=== PATIENT | female | born 1940 | race Caucasian/White ===

== ENCOUNTER → 2018-02-22 | Outpatient (REF) | payer MEDICARE ==
[2018-02-22 16:47] LABS: BASO % 0.3 % (0.0-1.0); EOS # 0.1 10^3/uL (0.0-0.50); HEMATOCRIT 37.6 % (36.0-47.0); HEMOGLOBIN 12.8 g/dl (12.0-15.5); IMMATURE GRANULOCYTE % 0.2 % (0-3.0); LYMPH # 1.3 10^3/uL (1.5-4.5); LYMPH % 21.3 % (24.0-44.0); MEAN CORPUSCULAR HEMOGLOBIN 30.4 pg (27.0-33.0); MEAN CORPUSCULAR VOLUME 89.3 fl (80.0-96.0); MONO # 0.4 10^3/uL (0.0-0.8); MONO % 7.2 % (0.0-5.0); NEUTROPHILS # 4.3 10^3/uL (1.8-7.7); PLATELET COUNT, AUTOMATED 186 10^3/uL (150-450); RED BLOOD COUNT 4.21 10^6/uL (4.00-5.40); RED CELL DISTRIBUTION WIDTH 12.9 % (11.5-14.5); WHITE BLOOD COUNT 6.1 10^3/uL (4.0-10.0)
[2018-02-22 16:50] LABS: ANION GAP 8 MEQ/L (8-16); BLOOD UREA NITROGEN 24 MG/DL (7-18); CALCIUM LEVEL 8.9 MG/DL (8.8-10.2); CARBON DIOXIDE LEVEL 26 MEQ/L (21-32); CHLORIDE LEVEL 102 MEQ/L (98-107); CREATININE FOR GFR 0.83 MG/DL (0.55-1.30); GLOMERULAR FILTRATION RATE > 60.0 (>39); GLUCOSE, FASTING 94 MG/DL (70-100); POTASSIUM SERUM 4.6 MEQ/L (3.5-5.1); SODIUM LEVEL 136 MEQ/L (136-145); THYROID STIMULATING HORMONE 0.253 uIU/ML (0.358-3.740)
== END ==
LOC: M LAB REF 16:10
DX: J02.9 Acute pharyngitis, unspecified (principal); E03.9 Hypothyroidism, unspecified; I10 Essential (primary) hypertension; R49.9 Unspecified voice and resonance disorder
CPT/HCPCS: 84443

== ENCOUNTER 2019-04-28 05:49 | Day surgery (SDC) | payer MEDICARE, BC ==
[~2019-04-28] VITALS: Ht 157.5 cm; Wt 71.7 kg
[~2019-04-28 05:49] MED LIST: BENI40TA26 PO; BIMA01SOL OD; CRES20TA2 PO; ECOT81TA5 PO; LEXA5TAB13 PO; NEXI20CA PO; SYNT50TA PO; TIMO0.2529 OU; VERA120C PO; VITA200028 PO
[2019-04-28] MEDS ORDERED: LR 1,000 ML IV ONE (06:45)
[2019-04-28] MEDS ORDERED: CETACAINE SPRAY 5GM As Ordered ONE (07:11)
[2019-04-28] MEDS ORDERED: LIDOCAINE VISCOUS 2% SOLN 15ML UDC As Ordered ONE (07:11)
[2019-04-28] MEDS ORDERED: PROPOFOL 200 MG/20 ML VIAL As Ordered ONE (08:12)
[2019-04-28 09:15] VITALS: BP 140/60
--- NOTE | 2019-04-28 12:51 | T-ECHO ---
DATE OF PROCEDURE: 04/28/2019 INDICATION: Aortic insufficiency. PROCEDURE: Transesophageal echocardiogram. ANESTHESIOLOGY: Nico Stuart CRNA BRIEF HISTORY: Mrs. Araya is a 78-year-old female who has had progressive exertional dyspnea over the last several months. The evaluation so far revealed evidence for aortic insufficiency that was felt to be approximately moderate by transthoracic echocardiogram in outside facility. She was seen in consultation by Dr. Vila and coronary angiography was recommended. She underwent heart catheterization that revealed no coronary artery disease and the severity of aortic insufficiency was felt to be sufficient to warrant surgery, but then it was reconsidered and Dr. Vila was apparently asked by Dr. Moore to perform transesophageal echocardiogram. He asked me to perform the procedure. I talked to the patient and her on an outpatient basis. I explained the rationale for the procedure and its indication. She signed appropriate consent. Because the copy from the office was not faxed she signed a new consent form this morning just prior to the procedure. All of her questions were answered. On physical exam, there was no change compared to outpatient evaluation. The procedure was performed in the operating room. She presented in fasting condition. After appropriate monitors were applied and a time out was taken, her posterior pharynx was anesthetized using viscous lidocaine and Cetacaine spray. She was then positioned on her left side after a bite block was placed. Probe was then introduced it into esophagus and later stomach after appropriate level of sedation was accomplished. It was an easy intubation without any complications. After appropriate images were taken the probe was withdrawn. The patient tolerated the procedure well and there were no complications. FINDINGS: Left ventricle has normal contractility, I estimate ejection fraction (EF) 60-65%. Right ventricle also has normal systolic function. Left atrium appears at least mildly enlarged. Right atrium appears normal size. Atrial septum is intact based on 2D and color Doppler imaging. Left atrial appendage is relatively large and free of thrombi. There is normal flow in both left sided and right sided pulmonary veins. Mitral valve appears normal. There is mild mitral insufficiency based on color Doppler imaging. Tricuspid valve also appears normal. There is only trace tricuspid insufficiency. Unfortunately quality of TR jet was not sufficient to adequately estimate pulmonary artery pressure. Pulmonic valve was relatively poorly seen, but by color Doppler imaging there is no stenosis or insufficiency. Aortic valve is tricuspid. There is no significant sclerosis of the valve and I did not see any obvious structural abnormalities. By color Doppler imaging there is approximately moderate aortic insufficiency. Pressure half-time of aortic insufficiency jet was approximately 450 milliseconds, which also corresponds to approximately moderate insufficiency and tends to be closer to the mild rather than severe degree. Evaluation of thoracic aorta are both in the root, aortic arch and descending segment reveals no significant atherosclerosis. CONCLUSIONS: 1. Preserved LV systolic function. 2. No hemodynamically significant mitral, tricuspid or pulmonic disease. 3. Intact atrial septum. 4. LA appendage free of thrombus. 5. No significant atherosclerosis of thoracic aorta. 6. Approximately moderate aortic insufficiency on structurally normal-appearing valve. COMMENTS: Subacute bacterial endocarditis (SBE) prophylaxis is not recommended. The patient does not have severe aortic insufficiency and I do not believe that open heart surgery with aortic valve replacement as indicated. Alternative causes of the patient's dyspnea shall be pursued. Results were communicated with Dr. Vila and I also will contact Dr. Moore to discuss this further. Edited 04/28/2019 @ 1319 [facility] cc: MD Lorne Mathew MD
== END 2019-04-28 09:38 | disposition home or self-care (01) ==
LOC: M SDC 05:49
PROVIDERS: ATTEND Internal Medicine Cardiovascular Disease
DX: I35.1 Nonrheumatic aortic (valve) insufficiency (principal); I48.0 Paroxysmal atrial fibrillation; I10 Essential (primary) hypertension; E03.9 Hypothyroidism, unspecified; E78.49 Other hyperlipidemia; K22.70 Barrett's esophagus without dysplasia; R06.02 Shortness of breath; Z79.82 Long term (current) use of aspirin; Z79.899 Other long term (current) drug therapy; Z87.891 Personal history of nicotine dependence